=== PATIENT | female | born 1975 | race Caucasian/White ===

== ENCOUNTER → 2017-09-25 | Outpatient (CLI) | payer OTHER ==
--- NOTE | 2017-09-25 13:14 | US ---
Study: Right upper quadrant abdominal ultrasound. Indication: RUQ PAIN Technical: Multiplanar, grayscale sonogram of the right upper quadrant of the abdomen obtained. Comparison: CT August 26, 2017. Findings: The liver is normal in echogenicity. 3 hyperechoic lesions within the right hepatic lobe noted measuring up to 1.5 cm. These likely reflect hemangiomas but nonspecific. Multiple gallstones visualized measuring up to 5 mm. No gallbladder wall thickening or pericholecystic edema. The common bile duct measures 5 mm in diameter. No intrahepatic biliary ductal dilatation. The right kidney is unremarkable. The visualized portions of the aorta and inferior vena cava are normal. The pancreas is unremarkable. Impression: Cholelithiasis. Suspected right hepatic lobe hemangiomas but ultimately indeterminate. Nonemergent liver mass protocol MRI abdomen with and without IV contrast can better evaluate. Electronically signed by: Murtaza Barton MD 09/25/2017 1:13 PM DATA COMMUNICATIONS TECHNICIAN
== END ==
LOC: US 11:13
PROVIDERS: ATTEND Surgery
DX: R10.11 Right upper quadrant pain (principal); K80.13 Calculus of gallbladder with acute and chronic cholecystitis with obstruction

== ENCOUNTER 2017-09-27 08:55 | Day surgery (SDC) | payer OTHER ==
[~2017-09-27 08:55] MED LIST: BUPIVACAINE 0.25% W/EPI 50 ML VIAL INJ ONE; DEXAMETHASONE INJ 10 MG/ML VIAL ONE; HEPARIN SODIUM (PORCINE) 10,000 UNITS/ML VIAL ONE; LACTATED RINGERS 1,000 ML ONE; METOCLOPRAMIDE HCL INJ 10 MG/2 ML VIAL ONE; NEOSTIGMINE METHYLSULFATE 1 MG/ML ML IV ONE; ONDANSETRON INJ 4 MG/2 ML VIAL ONE; PROPOFOL 200 MG/20 ML VIAL IV ONE; SODIUM CHL 0.9% 100ML MINI-BAG 100 ML IVPB ONE; ceFAZolin SODIUM 1 GM VIAL ONE
[2017-09-27] MEDS ORDERED: fentaNYL CITRATE INJ 50 MCG/ML AMP ONE (09:52)
[2017-09-27] MEDS ORDERED: LIDOCAINE 2 % GEL 5 ML TUBE TOP ONE (09:52)
[2017-09-27] MEDS ORDERED: ROCURONIUM BROMIDE 10 MG/ML VIAL ONE (09:52)
[2017-09-27 11:46] VITALS: O2SAT 98
[2017-09-27] MEDS ORDERED: MORPHINE SULFATE INJ 10 MG/ML VIAL ONE (12:00)
[2017-09-27] MEDS ORDERED: HYDROcodone 5MG/APAP 325MG 1 EA TAB ONE (12:30)
[2017-09-27 13:31] VITALS: BP 128/68; TEMP 98.1
--- NOTE | 2017-09-27 13:39 | OP ---
DATE OF PROCEDURE: 09/27/17 PREOPERATIVE DIAGNOSIS: 1. Symptomatic cholelithiasis. 2. Several non-diagnostic liver lesions. POSTOPERATIVE DIAGNOSIS: 1. Symptomatic cholelithiasis. 2. Severe nondiagnostic liver lesions. 3. Chronic cholecystitis. 4. Either hemangioma or blue walled cyst, anterior aspect of left lobe of liver. PROCEDURE: 1. Laparoscopic cholecystectomy with intraoperative cholangiography using fluoroscopy. SURGEON: Be Masterson MD. AFTER SCHOOL TEACHER: None. ANESTHESIA: Local infiltration of 0.25% Marcaine with epinephrine and general endotracheal anesthesia. INDICATION: The patient is a 41-year-old female with diagnosed cholelithiasis by both CT scan and ultrasound. There are small subcentimeter lesions throughout the liver that are not completely diagnosed definitively. She had on significant gallbladder attack with pain to the back and right upper quadrant with nausea. She has been placed on a fat-free diet and brought to the [facility] today for cholecystectomy after the risks, benefits and alternatives to the procedure were discussed and accepted. She also has had some significant anemia which is felt to be related to metromenorrhagia. FINDINGS: The gallbladder wall was minimally thickened with adhesions to the neck of the gallbladder. Intraoperative cholangiography revealed a full extrahepatic bile duct with no filling defects or strictures with free flow into the duodenum. Examination of the right lobe of the liver revealed no lesions identified. On the anterolateral edge of the left lobe of the liver, a single either blue walled cyst or hemangioma was identified at the edge and it was certainly subcentimeter. No other obvious pathology was identified. DESCRIPTION OF PROCEDURE: After adequate general endotracheal anesthesia was obtained, the patient was prepped and draped in the usual sterile manner in the supine position. Surgical time-out was taken. A curvilinear incision was fashioned in the infraumbilical area, first with infiltration of anesthesia and then with a sharp knife. Dissection was carried down through the skin and subcutaneous tissue to the midline fascia using blunt dissection. Traction sutures were placed on either side of the midline. A small incision was made in the midline fascia and the peritoneum was opened bluntly. Blanca trocar was introduced under direct vision into the abdominal cavity and fixed in place with the 20 mL balloon. CO2 was then insufflated until a pressure of 12 mmHg was reached and the abdomen was tympanitic in all four quadrants. When this was done, the laparoscope was introduced. The abdomen was inspected with the previously noted findings. The patient was then placed in reverse Trendelenburg position, turned to the left side. The upper abdominal ports were placed under direct vision. The gallbladder was grasped, retracted anteriorly and laterally. The neck of the gallbladder was retracted laterally. The triangle of Calot was explored after the adhesions to the neck of the gallbladder were taken down using blunt dissection. The cystic artery was identified and isolated, as was the cystic duct. The cystic duct was hemoclipped once proximally. The cystic artery was hemoclipped twice proximally and once distally. A small incision was made in the cystic duct. The cholangiogram catheter was introduced through a separate stab wound in the right upper quadrant, introduced into the cystic duct and clipped in place. Cholangiograms were then taken using fluoroscopy which revealed free flow into the duodenum with no filling defects or strictures noted. When this was done, the cystic duct catheter was removed. The cystic duct was hemoclipped three times distally and divided between the hemoclips. The cystic artery was divided. The gallbladder was then dissected free from the gallbladder bed of the liver using electrocautery. A second arterial branch was identified in the gallbladder bed of the liver and it was clipped twice. The gallbladder was removed from the infraumbilical port site in the usual manner under direct vision. When this was done, the subhepatic space and subphrenic space were irrigated copiously with saline. The effluent was noted to be clear. Good hemostasis was noted. At this point, the upper abdominal ports were removed under direct vision. Good hemostasis was noted. The CO2, the laparoscope and the infraumbilical port were removed. The infraumbilical port site fascia was approximated with a single [id number] suture of 0 Vicryl. Subcutaneous tissue was irrigated thoroughly. Skin edges were approximated with 4-0 Vicryl subcuticular sutures, benzoin and Steri-Strips. Sterile dressings were applied. The patient was awakened and taken to the Recovery Room in good and stable condition. Estimated blood loss was less than 25 mL. All sponge, needle and instrument counts were correct. #[id number] [facility]
== END 2017-09-27 13:20 | disposition home or self-care (01) ==
LOC: AMB 08:55
PROVIDERS: ATTEND Surgery
DX: K80.10 Calculus of gallbladder with chronic cholecystitis without obstruction (principal); K82.8 Other specified diseases of gallbladder; K21.9 Gastro-esophageal reflux disease without esophagitis; D50.0 Iron deficiency anemia secondary to blood loss (chronic); N92.1 Excessive and frequent menstruation with irregular cycle; Z98.84 Bariatric surgery status; Z79.899 Other long term (current) drug therapy
CPT/HCPCS: 00790; 36415; 47563; 76000; 80053; 81001; 85025; J0690; J1100; J1644; J2270; J2405; J2710; J2765; J3010; J3490; J7050; J7120